=== PATIENT | female | born 1960 | race Caucasian/White ===

== ENCOUNTER 2018-08-02 15:25 | Emergency (ER) | payer MEDICAID, SELFPAY ==
[2018-08-02 15:31] VITALS: BP 109/61; PULSE 58; RESP 14; TEMP 36.8; O2SAT 96
--- NOTE | 2018-08-02 16:14 | NUR.NOTE ---
patient stated that she would like to leave after doing the eye chart without difficulty. 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 advised to seek care if need be again.Nursing Note:
== END 2018-08-02 16:07 ==
PROVIDERS: PCP Family Medicine
DX: Z53.21 Procedure and treatment not carried out due to patient leaving prior to being seen by health care provider (principal)

== ENCOUNTER 2018-12-31 15:42 | Outpatient (CLI) | payer MEDICAID, SELFPAY ==
[2018-12-31 16:31] LABS: Abs Immature Grans 0.02 k/cumm (0.0-0.09); Absolute Basophil Count 0.04 k/cumm (0.0-0.2); Absolute Eosinophil Count 0.26 k/cumm (0.0-0.7); Absolute Lymphocyte Count 1.69 k/cumm (1.2-3.4); Absolute Monocyte Count 0.44 k/cumm (0.11-0.7); Absolute Neutrophil Count 3.47 k/cumm (1.2-6.7); Basophils % 0.7; Eosinophils % 4.4; HCT 41.5 % (36.0-46.0); HGB 14.1 g/dL (12.0-15.5); Immature Grans % 0.3; Lymphocytes % 28.5; Mean Corpuscular Hemoglobin 31.3 pg (27.0-33.0); Mean Platelet Volume 10.3 fL (8.0-11.0); Monocytes % 7.4; Neutrophils % 58.7; Platelet Count 192 x1000/uL (130-400); RBC 4.51 m/cumm (4.00-5.20); RBC Distribution Width 12.9 % (11.7-14.6); White Blood Cell Count 5.92 k/cumm (4.4-10.8)
[2018-12-31 16:46] LABS: Bilirubin Negative (Negative); Blood Negative (Negative); Clarity Clear; Glucose Negative (Negative); Ketones Negative (Negative); Leukocyte Esterase Trace (Negative); Nitrite Negative (Negative); Urobilinogen 0.2 EU/dL (Up TO 0.2)
[2018-12-31 17:04] LABS: Iron 88 ug/dL (50-175); Total Iron Binding Capacity 289 ug/dL (250-450); Transferrin Sat 30 % (15-50)
[2018-12-31 17:06] LABS: Bacteria Rare HPF (Negative); C & S Indicated? No; Casts Negative LPF (Negative); Crystals Negative HPF (Negative); Epithelial Cells Rare HPF (Negative); Mucus Negative (Negative); Other Cells Negative (Negative); RBC Negative (0-2); WBC 0-2 HPF (0-5)
[2018-12-31 17:09] LABS: ALT 58 U/L (12-78); AST 31 U/L (15-37); Albumin 4.2 g/dL (3.4-5.0); Alkaline Phosphatase 118 U/L (46-116); Anion Gap 11.7 mmol/L (3-11); BUN 13 mg/dL (7-18); Bilirubin, Total 0.4 mg/dL (0.2-1.0); CO2 27.3 mmol/L (21.0-32.0); CREATININE 0.82 mg/dL (0.55-1.02); Calcium 9.1 mg/dL (8.5-10.1); Chloride 103 mmol/L (98-107); Ferritin 77 ng/mL (8-388); Glucose 96 mg/dL (70-100); Potassium 4.1 mmol/L (3.5-5.1); Sodium 142 mmol/L (136-145); TSH 6.69 uIU/mL (0.358-3.74); Total Protein 7.4 g/dL (6.4-8.2)
[2018-12-31 17:42] LABS: FREE T4 1.03 ng/dL (0.76-1.46)
[2019-01-01 17:31] LABS: T3,Free 3.4 pg/ml (2.8-5.3)
[2019-01-02 11:51] LABS: Thyroperoxidase Antibody <28 U/mL (<61)
[2019-01-02 13:20] LABS: Thyroglobulin Antibody 15 U/mL (<61)
[2019-01-06 18:04] LABS: Histamine Plasma 0.72 ng/mL (0-1.0)
== END 2018-12-31 16:02 ==
PROVIDERS: PCP Family Medicine; Visit Provider Naturopath
DX: E03.9 Hypothyroidism, unspecified (principal); D50.9 Iron deficiency anemia, unspecified; E01.8 Other iodine-deficiency related thyroid disorders and allied conditions; M79.7 Fibromyalgia; G44.209 Tension-type headache, unspecified, not intractable; R53.83 Other fatigue; J30.9 Allergic rhinitis, unspecified; Z00.00 Encounter for general adult medical examination without abnormal findings
CPT/HCPCS: 36415; 80053; 81003; 81015; 82728; 83088; 83540; 83550; 84439; 84443; 84481; 85025; 86376; 86800

== ENCOUNTER 2020-11-03 11:20 | Outpatient (REF) | payer MEDICAID, SELFPAY ==
--- OUTSIDE RECORDS SUMMARY | 2020-11-03 11:22 | XMS_ITS | Encounter Summary ---
:1960 External Reference #:[id number] Author Reason for Visit phone consult Assessment and Plan 1. Anxiety 2. Sensitivity chemical sensitivity (MCS), el ectro-hypersensitivity (EHS) Discussion Note 1. 34 minutes (10:38am- 11:12am) sp ent with patient in consultation. 50 % CCC with review of dx and tx options. f/u pr n. Patient educational handouts: No information available. Plan of Care Patient Instructions 1. F/U with PCP. 2. Sacred cubit sticks to place near y ou when using electronic devices. Reminders Provider Appointments None recorded. ? ? Lab None recorded. ? ? Referral None recorded. ? ? Procedures None recorded. ? ? Surgeries None recorded. ? ? Imaging None recorded. ? ? Medications No Medications Reported Notes: Liposomal glutathione 375 mg CoQ10 60mg qd Selenium Thyrocare Rosaline Active B complex 1 qd Qamar prn Magnesium glycinate Methylfolate 2.5mg/d Vitamin D 5,000 IU ADK Zinc 30mg Quercetin 250mg Vitamin C (NOW) Medications Administered None recorded. Vitals None recorded. Results Lab Results None recorded. Allergies Code Code System Name Reaction Severity Onset 4530 RxNorm Formaldehyde ? ? ? 969722 RxNorm House Dust ? ? ? 5818551 RxNorm Latex ? ? ? Penicillins ? ? ? Notes: chemicals EMF (hernandez hands, irregular HR, fatigue) Problems Name Status Onset Date Source ? 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 Anxiety Active 11/30/2018 ? Fibromyalgia Active 11/30/2018 ? Fatigue Active 11/30/2018 ? Procedures Date Name Performed by ? 04/20/2020 Cataract Surgery Complex Information not available Vaccine List None recorded. Social History Tobacco Smoking Status Never Smoker Diet SPECIFIC Number of children 5 Able to Care for Self Y Chewing tobacco none Most Recent Tobacco Use Screening 11/29/2018 Advance directive Y General stress level Medium Exercise level Occasional Notes: chores Live alone or with others? with others Notes: wit h 18yo son Alcohol intake None Education 4 Year College Sexually active? N Passive smoke exposure? N Hard of hearing or deaf in one or both N ears? Caffeine intake None Smoke alarm in home Y Seat belts used routinely Y Legally blind in one or both eyes? N Family History Relation Problem Onset Age of Age Notes Mother Diabetes mellitus (No N/A (No Notes) Information) Mother Osteoporosis (No N/A (No Notes) Information) Mother Heart disease (No N/A (No Notes) Information) Mother Hypertensive disorder (No N/A (No No sugey) Information) Mother Hypercholesterolemia (No N/A (No Not es) Information) Brother Diabetes mellitus (No N/A (No Notes) Information) Brother Alcohol abuse (No N/A (No Notes) Information) Sister Osteoporosis (No N/A (No Notes) Information) Sister Hypothyroidism (No N/A (No Notes) Information) Son Hypothyroidism (No N/A (No Notes) Information) Daughter Localized scleroderma (No N/A d/t va ccine Information) Father Spina bifida (No N/A (No Notes) Information) Functional Status Unknown. Past Encounters 09/30/2020 Anxiety; Sensitivity Lani Powell, [place]: [address] [place] [phone], Ph. History of Present Illness Note: 60 year old female seen for telephone consultation (no computer for telemed) for YESSI. Sees [facility] for PCP. Had recent bloodwork done there for screening. <div>
</div><div>CC#1: MCS </div><div>EMF sensitivity which she feels affects her heart. </div><div>Other symptoms: hand hernandez and it radiates up her arm. </div><div>Lives alone which she is not used to; grew up in a big family and had 5 kids but is thinking she may foster a child. </div><div>Doesn't use the computer much and it is wired. Doesn't have a cell phone; uses a land line. </div><div>Her sensitivity increased when she had carbon monoxide exposure from a boiler in her home 2 winter's ago. </div><div>Symptoms related to EMF are better in the summer. </div><div>After computer use she gets heart palpitations and her hands/arms ache. </div><div>Only 2 outlets in her house but uses an electrical heater whichaffects her heart. </div><div>Has a natural fiber bed without springs now. She is wondering about carbon paint?? </div> Review of Systems ? Comprehensive General Adult ROS Reported By: Patient Constitutional: Constitutional: no fever, no night sweats, no significant weight gain, no significant weight loss, no exercise intolerance Eyes: Eyes: no dry eyes, no vision change, no irritation; wears reading glasses ENMT: Ears: no ear pain, difficult y hearing. Nose: no frequent nosebleeds, no nose problems , no sinus problems; deviated septum d/t fracture 2010. Mo uth/Throat: no sore throat, no dry mouth, no mouth ulcers Cardiovascular: Cardiovascular: no chest jessica n, no arm pain on exertion, no shortness of breath when wal efraín, no shortness of breath when lying down, no known heart m urmur, palpitations Respiratory: Respiratory: no cough, no wh eezing, no shortness of breath, no coughing up blood, no sleep apnea Gastrointestinal: Gastrointestinal: no abdomin al pain, no vomiting, normal appetite, no diarrhea, not v omiting blood, no dyspepsia, no GERD, no constipation; BM: 1 -3x/day, well formed, easy to pass Genitourinary: Genitourinary: no incontinen ce, no difficulty urinating, no hematuria, no increased freq uency Musculoskeletal: Musculoskeletal: no muscle w eakness, no arthralgias/joint pain, no back pain, no swell ing in the extremities, muscle aches; Has been able to hike and stay more active. Is doing much better with fibromyalgi a. FMS jt pn: hips, knee, back, shoulder, neck Integumentary: Skin: no abnormal mole, no j aundice, no rashes, no laceration Neurologic: Neurologic: no loss of consc iousness, no weakness, no numbness, no seizures, no di zziness, no tremor, migraines Psychiatric: Psych: no depression, no sle ep disturbances, feeling safe in a relationship, no alcohol abu se, no hallucinations, no suicidal thoughts, anxiety Endocrine: Endocrine: no fatigue, (norm al) hot flashes Hematologic/Lymphatic: Hematologic/Lymphatic no swo llen glands, no bruising, no excessive bleeding Allergic/Immunologic: Allergy/Immunologic: no runn y nose, no sinus pressure, no itching, no hives, no freque nt sneezing Physical Exam ? Mental Status Exam Reported By: Patient Mental Status Exam: Speech: fluent, clear, francis l volume. Perception: no hallucinations. Cognition: a lert, oriented to situation, oriented to time, oriented to place, oriented to person, memory intact. Intelligence: average. Mood: euthymic. Affect: pleasant, congruent to thought content . Insight: intact. Judgment: intact. Thought Processes: persevera tion. Thought Content: unremarkable
--- OUTSIDE RECORDS SUMMARY | 2020-11-03 11:22 | XMS_ITS ---
:1960 Author Care Team Providers Name Role Phone BARBARA SEE GREEN Primary Care Provider [phone] SAY ZHENG MD Mold Worker [phone] Allergies Code Code System Name Reaction Severity Status Onset 710423 RxNorm Jesse Thyroid ? ? Active ? Histamine H2 ? ? Active ? Inhibitors Latex, Natural ? ? Active ? Rubber 15036 RxNorm Levothyroxine ? ? Active ? 7299 RxNorm Neomycin ? ? Active ? Penicillins ? ? Active ? 115041 RxNorm Synthroid ? ? Active ? Medications Name Status Start Date Stop Date ? ? Jesse Thyroid 15 mg tablet Completed ? 07/21 Keflex 500 mg capsule Completed ? 08/07/2019 Take 1 capsule 4 times a day by oral route for 7 days. liothyronine 5 mcg tablet Active ? Not av ailable neomycin 3.5 mg/g-polymyxin B 10,000 Completed ? 08/07/2019 unit/g-dexameth 0.1 % eye oint Vigamox 0.5 % eye drops Completed ? 08/07/20 Notes: Folate Herbal medicines Problems Name Status Onset Date Source ? Fibromyalgia Active 01/06/2019 ? Disorder of Thyroid Gland Active ? Histor y Adhesive Capsulitis of Shoulder Active ? History Closed Fracture of Carpal Bone Active ? H istory Gynecologic Examination Active ? History Screening Mammography Active ? History Hyperlipidemia Screening Active ? History Procedure by Method Unknown ? History Notes: Mastcell Cytosis Multiple Chemical Sensitivies Osteopenia Hypothyroidism EMF sensitivty Procedures Date Name Performed by ? 08/07/2019 MAMMO, Screening, Tomosynthesis, [facility] Radiology (Internal) Bilateral [address] [place] [address] (Work Place) 08/17/2019 , Breast [facility] Radiology (Internal) [address] [place] [address] (Work Place) Notes: none Results Lab Results Date Name Specimen Result Interpretation Description Value Range Status Address ? 12/03/2019 CBC W/ Auto BLD ? Wbc 5.1 5.0-10.0 Final [place] Diff 10*3/uL 10*3/uL [facility] L ab (Internal) : [address] ? ? BLD ? Rbc 4.56 4.10-5.30 Final [place] 10*6/uL 10*6/uL [facility] L ab (Internal) : [address] ? ? BLD ? Hgb 13.9 g/dL 12.0-16.0 Final Nort h g/dL [facility] L ab (Internal) : [address] ? ? BLD ? Hct 42.5 % 37.0-47.0 Final [facility] L ab (Internal) : [address] ? ? BLD ? Mcv 93.2 fL 80.0-96.0 Final [facility] Hospital L ab (Internal) : [address] t ? ? BLD ? Mch 30.5 pg 26.0-32.0 Final [facility] L ab (Internal) : [address] t ? ? BLD ? Mchc 32.7 g/dL 31.0-35.0 Final Nort h g/dL [facility] L ab (Internal) : [address] t ? ? BLD ? Rdw 13.0 % 11.5-14.5 Final [facility] L ab (Internal) : [address] t ? ? BLD ? Plt 223 130-450 Final [place] 10*3/uL 10*3/uL [facility] L ab (Internal) : [address] ? ? BLD ? Anc 2.67 ? Final [place] 10*3/uL [facility] L ab (Internal) : [address] t ? ? BLD ? Neutro 52.7 % 40.0-75.0 Final [facility] L ab (Internal) : [address] t ? ? BLD ? Lymph 32.3 % 20.0-50.0 Final [facility] L ab (Internal) : [address] ? ? BLD ? Hyde 7.9 % 2.0-10.0 Final [place] % [facility] L ab (Internal) : [address] t ? ? BLD ? Eos 5.9 % 1.0-6.0 % Final [facility] Hospital L ab (Internal) : [address] t ? ? BLD ? Baso 1.0 % 0.0-1.0 % Final [facility] Hospital L ab (Internal) : [address] t ? ? BLD ? Ig 0.2 % 0.0-0.9 % Final [facility] Hospital L ab (Internal) : [address] t 12/03/2019 CMP, Serum S ? g/r 89 mg/dL 74-106 Final [place] or Plasma mg/dL [facility] ([facility] : [address] t ? ? S High Bun 18 mg/dL 7-17 Final [place] mg/dL [facility] L ab (Internal) : [address] t ? ? S ? Crea 0.70 mg/dL 0.52-1.04 Final Nor th mg/dL [facility] L ab (Internal) : [address] t ? ? S ? Ca 9.3 mg/dL 8.4-10.2 Final [facility] mg/dL [facility] ([facility] : [address] t ? ? S ? Na 141 mmol/L 137-145 Final North mmol/L [facility] L ab (Internal) : [address] t ? ? S ? K 3.6 mmol/L 3.5-5.1 Final [place] mmol/L [facility] L ab (Internal) : [address] t ? ? S ? Cl 104 mmol/L 98-107 Final North mmol/L [facility] L ab (Internal) : [address] t ? ? S ? Tco2 26.0 22.0-30.0 Final North mmol/L mmol/L [facility] L [facility] (Internal) : [address] t ? ? S ? Tp 7.3 g/dL 6.3-8.2 Final [place] g/dL [facility] L ab (Internal) : [address] t ? ? S ? Alb 4.4 g/dL 3.5-5.0 Final [place] g/dL [facility] L [facility] (Internal) : [address] t ? ? S ? Tbil 0.4 mg/dL 0.2-1.3 Final [place] mg/dL [facility] L ab (Internal) : [address] t ? ? S ? Alp 91 U/L 50-136 Final [place] U/L [facility] Hospital L ab (Internal) : [address] t ? ? S ? Alt 25 U/L 9-52 U/L Final [place] (Sgpt) [facility] L ab (Internal) : [address] t ? ? S ? Ast 29 U/L 14-36 U/L Final [place] (Sgot) [facility] L [facility] (Internal) : [address] 12/03/2019 D-dimer, PLASMA High Dimq 0.96 mg/L 0.00-0.50 Final [place] Quant, mg/L [facility] Plasma Hospital L ab (Internal) : [address] 12/03/2019 Urinalysis, UR ? UA-color pale pale Final [place] Dipstick, yellow yellow [facility] Hospital L ab Micro (Internal) : [address] t ? ? UR ? UA-appear clear clear Final [facility] Hospital L ab (Internal) : [address] t ? ? UR ? UA-spec <=1.005 1.003-1.0 Final Nort h Grav 35 [facility] L ab (Internal) : [address] t ? ? UR ? UA-pH 5.5 [pH] 4.6-8.0 Final [place] [pH] [facility] L ab (Internal) : [address] t ? ? UR ABNORMAL UA-leuk trace negative Final Nort h Est [facility] Hospital L ab (Internal) : [address] ? ? UR ? UA-nitrit negative negative Final No rth e [facility] L ab (Internal) : [address] t ? ? UR ? UA-prot negative negative Final Nort h [facility] L ab (Internal) : [address] t ? ? UR ? UA-gluc negative negative Final Nort h [facility] Hospital L ab (Internal) : [address] t ? ? UR ? UA-ketone negative negative Final No rth [facility] L ab (Internal) : [address] t ? ? UR ? UA-urobil normal normal Final [facility] L ab (Internal) : [address] t ? ? UR ? UA-bili negative negative Final [facility] L ab (Internal) : [address] t ? ? UR ? UA-blood negative negative Final [facility] L ab (Internal) : [address] 12/03/2019 Troponin I, S ? Trop <0.06 0.00-0.06 Final [place] Serum or NG/mL NG/mL [facility] L ab (Internal) : [address] 12/03/2019 Urinalysis, UR ? UA-WBC 0-3 [hpf] 0-3 [hpf] F inal [place] Microscopic Count [facility] L ab (Internal) : [address] t ? ? UR ? UA-RBC 0-2 [hpf] 0-2 [hpf] Final [facility] L ab (Internal) : [address] t ? ? UR ? UA-bacter rare [hpf] none seen Final [place] ia [hpf] [facility] L ab (Internal) : [address] ? ? UR ? UA-epithe rare [hpf] none seen Final [place] lial [hpf] [facility] L ab (Internal) : [address] t ? ? UR ? UA-mucus none seen none seen Final N orth [hpf] [hpf] [facility] L ab (Internal) : [address] t 12/03/2019 TSH, Serum S ? Tsh 3.41 0.47-4.68 Final [place] or Plasma u[IU]/mL u[IU]/mL [facility] L ab (Internal) : [address] t 09/25/2019 Maddy-bar S - Ebv Vca negative negative Fi nal North r Virus IgM Ab, S Countr y (Ebv) IgG + Hospi grace Lab IgM Panel, (Inter nal): Serum [address] t ? ? S - Ebv Vca positive negative Final Nort h IgG Ab, S [facility] L ab (Internal) : [address] ? ? S - Ebna Ab, positive negative Final Nor th [facility] L ab (Internal) : [address] ? ? S - Interpret results ? Final North ation suggest [facility] L ab infection. (Inter nal): [address] 09/25/2019 Vitamin D, S - 25-Hydrox <4.0 NG/mL ? F inal North 25-Hydroxy, y D2 Count ry Total, Hospital L ab Serum (Internal) : [address] ? ? S - 25-Hydrox 54 NG/mL ? Final Nort h y D3 [facility] L ab (Internal) : [address] ? ? S - 25-Hydrox 54 NG/mL ? Final Nort h y D Total [facility] L ab (Internal) : [address] 09/25/2019 TSH, Serum S - Tsh 3.65 0.47-4.68 Final [place] or Plasma u[IU]/mL u[IU]/mL [facility] L ab (Internal) : [address] 09/25/2019 T4, Free, S - Ft4 1.04 NG/dL 0.78-2.19 [facility] Serum NG/dL [facility] L ab (Internal) : [address] 06/17/2019 Insulin, S - Insulin 3.2 uu/mL <29 uu/mL [facility] L ab (Internal) : [address] 06/17/2019 MIRNA S - MIRNA negative negat Final Nort h ([facility]) (Inte rnal): Screen, [address] 01/06/2019 CBC W/ Auto BLD - Wbc 5.3 5.0-10.0 Final [place] Diff 10*3/uL 10*3/uL [facility] L ab (Internal) : [address] ? ? BLD - Rbc 4.42 4.10-5.30 Final [place] 10*6/uL 10*6/uL [facility] L [facility] (Internal) : [address] ? ? BLD - Hgb 13.6 g/dL 12.0-16.0 Final Nort h g/dL [facility] Hospital L ab (Internal) : [address] ? ? BLD - Hct 40.8 % 37.0-47.0 Final [facility] (Internal) : [address] ? ? BLD - Mcv 92.3 fL 80.0-96.0 Final [facility] Hospital L ab (Internal) : [address] ? ? BLD - Mch 30.8 pg 26.0-32.0 Final [place] pg [facility] Hospital L ab (Internal) : [address] ? ? BLD - Mchc 33.3 g/dL 31.0-35.0 Final Nort h g/dL [facility] Hospital L ab (Internal) : [address] ? ? BLD - Rdw 12.5 % 11.5-14.5 Final [facility] (Internal) : [address] ? ? BLD - Plt 186 130-450 Final [place] 10*3/uL 10*3/uL [facility] Hospital L ab (Internal) : [address] ? ? BLD - Anc 3.24 ? Final [place] 10*3/uL [facility] Hospital L ab (Internal) : [address] ? ? BLD - Neutro 60.8 % 40.0-75.0 Final [facility] (Internal) : [address] ? ? BLD - Lymph 26.6 % 20.0-50.0 Final [facility] (Internal) : [address] ? ? BLD - Hyde 7.7 % 2.0-10.0 Final [facility] (Internal) : [address] ? ? BLD - Eos 3.9 % 1.0-6.0 % Final [facility] Hospital L ab (Internal) : [address] ? ? BLD - Baso 0.8 % 0.0-1.0 % Final [facility] Hospital L ab (Internal) : [address], Martin[place]enn t ? ? BLD - Ig 0.2 % 0.0-0.9 % Final [facility] Hospital L ab (Internal) : [address] 01/06/2019 CMP, Serum S - g/r 84 mg/dL 74-106 Final North or Plasma mg/dL [facility] L [facility] (Internal) : [address] t ? ? S - Bun 11 mg/dL 7-17 Final [facility] mg/dL [facility] L [facility] (Internal) : [address] t ? ? S - Crea 0.70 mg/dL 0.52-1.04 Final Nor th mg/dL [facility] L [facility] (Internal) : [address] ? ? S - Ca 9.0 mg/dL 8.4-10.2 Final [place] mg/dL [facility] L ab (Internal) : [address] t ? ? S - Na 141 mmol/L 137-145 Final North mmol/L [facility] L ab (Internal) : [address] t ? ? S - K 3.7 mmol/L 3.5-5.1 Final [facility] mmol/L [facility] (Internal) : [address] t ? ? S - Cl 105 mmol/L 98-107 Final [place] mmol/L [facility] Hospital L ab (Internal) : [address] t ? ? S - Tco2 26.0 22.0-30.0 Final North mmol/L mmol/L [facility] L [facility] (Internal) : [address] t ? ? S - Tp 7.1 g/dL 6.3-8.2 Final [facility] g/dL [facility] L [facility] (Internal) : [address] ? ? S - Alb 4.0 g/dL 3.5-5.0 Final [facility] g/dL [facility] L [facility] (Internal) : [address] t ? ? S - Tbil 0.6 mg/dL 0.2-1.3 Final [facility] mg/dL [facility] L [facility] (Internal) : [address] t ? ? S - Alp 92 U/L 50-136 Final [facility] U/L [facility] L [facility] (Internal) : [address] jun ? ? S - Alt 35 U/L 9-52 U/L Final [place] (Sgpt) [facility] Hospital L ab (Internal) : [address] jun ? ? S - Ast 28 U/L 14-36 U/L Final [place] (Sgot) [facility] Hospital L ab (Internal) : [address] 01/06/2019 CRP, High S - Rcrp <0.10 0.10-0.30 Final [place] Sensitivity mg/dL mg/dL Count ry , Serum or Hospit al Lab Plasma (Internal) : [address] [facility] 01/06/2019 Go-roch MISC - [id number] see below ? Final No rth Refrigerate 01/08/2019 C ountry 11:56 AM Hospital Lab (Internal) : [address] 01/06/2019 Go-roch MISC - [id number] see below ? Final [place] r[facility] Refrigerate 01/08/2019 C ountry 11:49 AM Hospital Lab (Internal) : [address] 01/06/2019 Go-roch MISC - [id number] see below ? Final [place] r[place] Refrigerate 01/08/2019 C ountry 11:48 AM Hospital Lab (Internal) : [address] 01/06/2019 Go-roch MISC - [id number] see below ? Final [place] r[place] Refrigerate 01/08/2019 C [place]untry 11:48 AM Hospital Lab (Internal) : [address] t 01/06/2019 Go-roch MISC - [id number] see below ? Final [place] r[place] Refrigerate 01/08/2019 C [place]unt[place] 11:50 AM Hospital Lab (Internal) : [address] 01/06/2019 Go-roch MISC - [id number] see below ? Final [place] r[place] Refrigerate 01/09/2019 C [place] 03:56 pm Hospital Lab (Internal) : [address] 01/06/2019 Go-roch MISC - [id number] see below ? Final [place] r[place] Refrigerate 01/08/2019 C [place]unt[place] 01:40 pm Hospital Lab (Internal) : [address] t 01/06/2019 Grass S - Grass <0.35 kU/L ? Final No rth Allergen Panel # 2 Count ry Panel, Hospital L ab Serum (Internal) : [address] 01/06/2019 Soybean S - Soybean, <0.35 kU/L ? Final [place] Ige, Serum IgE Countr Hospital L ab (Internal) : [address] 01/06/2019 Mold S - Mold <0.35 kU/L ? Final No rth Allergen Panel [facility] Mix II IgE Hospit al Lab Ab, Serum (Pharmacy Informatics Manager al): [address] 01/06/2019 Egg Yolk S - Egg Yolk, <0.35 kU/L ? Fin al [place] Ige, Serum IgE Countr Hospital L ab (Internal) : [address] 01/06/2019 Egg White S - Egg <0.35 kU/L ? Final [place] Ige, Serum White, IgE [facility] Hospital L ab (Internal) : [address] 01/06/2019 Doland Ige, S - Doland-food <0.35 kU/L ? Fi nal [place] Serum , IgE [facility] Hospital L ab (Internal) : [address] 01/06/2019 Aspergillus S - Aspergill 61.7 mg/L <=102 F inal [place] Fumigatus us mg/L Country IgG Ab, QN, Fumigatus, H ospital Lab Serum IgG Ab, S (Pharmacy Informatics Manager al): [address] 01/06/2019 MIRNA S ABNORMAL MIRNA positive negat Final No rth (Antinuclea Interpreta C [facility] Hospital L ab Antibodies) (Inte rnal): Screen, [address] ? ? S - Antibody 1:160 ? Final [place] Titer speckled [facility] Pattern Hospital Lab (Internal) : [address] 01/06/2019 Send Out, MISC - S/O ? ? Final th Misc. [facility] L ab (Internal) : [address] ? ? MISC - Status sent to ? Final [place] reference [facility] L ab (Internal) : [address] 11/18/2018 Tryptase, S - Tryptase, 4.3 NG/mL <11.5 Fin al [place] Serum S NG/mL [facility] Hospital L ab (Internal) : [address] t 11/18/2018 CBC W/ Auto BLD - Wbc 5.4 5.0-10.0 Final [place] Diff 10*3/uL 10*3/uL [facility] Hospital L ab (Internal) : [address], [place] t ? ? BLD - Rbc 4.72 4.10-5.30 Final [place] 10*6/uL 10*6/uL [facility] Hospital L ab (Internal) : [address] t ? ? BLD - Hgb 14.5 g/dL 12.0-16.0 Final Nort h g/dL [facility] Hospital L ab (Internal) : [address] t ? ? BLD - Hct 44.0 % 37.0-47.0 Final [facility] L ab (Internal) : [address] t ? ? BLD - Mcv 93.2 fL 80.0-96.0 Final [facility] L ab (Internal) : [address] t ? ? BLD - Mch 30.7 pg 26.0-32.0 Final [facility] L ab (Internal) : [address] t ? ? BLD - Mchc 33.0 g/dL 31.0-35.0 Final Nort h g/dL [facility] L ab (Internal) : [address] t ? ? BLD - Rdw 12.7 % 11.5-14.5 Final [facility] L ab (Internal) : [address] t ? ? BLD - Plt 237 130-450 Final [place] 10*3/uL 10*3/uL [facility] L ab (Internal) : [address] t ? ? BLD - Anc 2.82 ? Final [place] 10*3/uL [facility] L ab (Internal) : [address] t ? ? BLD - Neutro 52.8 % 40.0-75.0 Final [facility] L ab (Internal) : [address] ? ? BLD - Lymph 32.5 % 20.0-50.0 Final [facility] L ab (Internal) : [address] ? ? BLD - Hyde 8.4 % 2.0-10.0 Final [facility] L ab (Internal) : [address] ? ? BLD - Eos 5.0 % 1.0-6.0 % Final [facility] Hospital L ab (Internal) : [address] ? ? BLD High Baso 1.1 % 0.0-1.0 % Final [facility] L ab (Internal) : [address] ? ? BLD - Ig 0.2 % 0.0-0.9 % Final [facility] L ab (Internal) : [address] 11/18/2018 Send Out, MISC - S/O ? ? Final [facility] L ab (Internal) : [address] ? ? MISC - Status sent to ? Final [facility] L ab (Internal) : [address] [place] 11/18/2018 -[facility] - [id number] see below ? Final No rth Refrigerate 11/25/2018 C ountry 09:06 AM Hospital Lab (Internal) : [address] 11/18/2018 -[facility] - [id number] see below ? Final No rth Refrigerate 11/24/2018 C ountry 08:40 AM Hospital Lab (Internal) : [address] [place] 09/21/2018 CBC W/ Auto BLD - Wbc 6.8 5.0-10.0 Final [place] Diff 10*3/uL 10*3/uL [facility] Hospital L ab (Internal) : [address] [place] ? ? BLD Low Rbc 3.97 4.10-5.30 Final [place] 10*6/uL 10*6/uL [facility] Hospital L ab (Internal) : [address] [place] ? ? BLD - Hgb 12.2 g/dL 12.0-16.0 Final [facility] h g/dL [facility] Hospital L ab (Internal) : [address] [place] ? ? BLD - Hct 37.0 % 37.0-47.0 Final [facility] L ab (Internal) : [address] [place] ? ? BLD - Mcv 93.2 fL 80.0-96.0 Final [place] fL [facility] Hospital L ab (Internal) : [address] ? ? BLD - Mch 30.7 pg 26.0-32.0 Final [place] pg [facility] Hospital L ab (Internal) : [address] ? ? BLD - Mchc 33.0 g/dL 31.0-35.0 Final Nort [facility] g/dL [facility] (Internal[facility] : [address] t ? ? BLD - Rdw 12.4 % 11.5-14.5 Final [facility] L [facility] (Internal) : [address] t ? ? BLD - Plt 185 130-450 Final North 10*3/uL 10*3/uL [facility] L [facility] (Internal) : [address] ? ? BLD - Anc 4.00 ? Final [place] 10*3/uL [facility] Hospital L ab (Internal) : [address] ? ? BLD - Neutro 58.8 % 40.0-75.0 Final [facility] L [facility] (Internal) : [address] t ? ? BLD - Lymph 26.6 % 20.0-50.0 Final [facility] L [facility] (Internal) : [address] t ? ? BLD - Hyde 9.5 % 2.0-10.0 Final [facility] L [facility] (Internal) : [address] t ? ? BLD - Eos 3.7 % 1.0-6.0 % Final [facility] Hospital L ab (Internal) : [address] t ? ? BLD - Baso 0.7 % 0.0-1.0 % Final [facility] Hospital L ab (Internal) : [address] ? ? BLD - Ig 0.7 % 0.0-0.9 % Final [facility] Hospital L ab (Internal) : [address] 09/21/2018 CMP, Serum S - g/r 99 mg/dL 74-106 Final [place] or Plasma mg/dL [facility] L [facility] (Internal) : [address] t ? ? S - Bun 14 mg/dL 7-17 Final [facility] mg/dL [facility] L [facility] (Internal) : [address] ? ? S - Crea 0.70 mg/dL 0.52-1.04 Final Nor th mg/dL [facility] L ab (Internal) : [address] t ? ? S - Ca 8.8 mg/dL 8.4-10.2 Final [facility] mg/dL [facility] L [facility] (Internal) : [address] t ? ? S - Na 142 mmol/L 137-145 Final [facility] mmol/L [facility] L [facility] (Internal) : [address] t ? ? S - K 3.5 mmol/L 3.5-5.1 Final [facility] mmol/L [facility] L [facility] (Internal) : [address] t ? ? S - Cl 107 mmol/L 98-107 Final [facility] mmol/L [facility] L [facility] (Internal) : [address] t ? ? S - Tco2 25.0 22.0-30.0 Final [place] mmol/L mmol/L [facility] L ab (Internal) : [address] ? ? S Low Tp 6.2 g/dL 6.3-8.2 Final [facility] g/dL [facility] L [facility] (Internal) : [address] t ? ? S - Alb 3.6 g/dL 3.5-5.0 Final [facility] g/dL [facility] L [facility] (Internal) : [address] t ? ? S - Tbil 0.2 mg/dL 0.2-1.3 Final [facility] mg/dL [facility] L [facility] (Internal) : [address] t ? ? S - Alp 71 U/L 50-136 Final [facility] U/L [facility] L [facility] (Internal) : [address] t ? ? S - Alt 18 U/L 9-52 U/L Final [place] (Sgpt) [facility] Hospital L ab (Internal) : [address] ? ? S - Ast 25 U/L 14-36 U/L Final [place] (Sgot) [facility] Hospital L ab (Internal) : [address] 09/21/2018 Troponin I, S - Trop <0.06 0.00-0.06 Final [place] Serum or NG/mL NG/mL [facility] L ab (Internal) : [address] [facility] 06/06/2018 T3, Free, S Low T3, Free 2.7 pg/mL 2.8-5.3 Fin al [place] Serum or pg/mL [facility] L ab (Internal) : [address] [facility] 06/06/2018 TSH, Serum S - Tsh 4.54 0.47-4.68 Final [place] or Plasma u[IU]/mL u[IU]/mL [facility] L ab (Internal) : [address] [facility] 06/06/2018 T4, Total, S - T4 5.5 ug/dL 5.5-11.0 Judith l [place] Serum ug/dL [facility] L ab (Internal) : [address] [facility] 03/25/2018 T3, Free, S - T3, Free 3.0 pg/mL 2.8-5.3 Fin al [place] Serum or pg/mL [facility] L ab (Internal) : [address] [facility] 03/25/2018 MIRNA S - MIRNA negative negat Final Nort h (Antinuclea Interpreta [facility] L ab Antibodies) (Inte rnal): Screen, [address] [facility] 03/25/2018 TSH, Serum S High Tsh 4.80 0.47-4.68 Final [place] or Plasma u[IU]/mL u[IU]/mL [facility] L ab (Internal) : [address] [facility] 03/25/2018 T4, Total, S Low T4 5.4 ug/dL 5.5-11.0 Judith [facility] Serum ug/dL [facility] L ab (Internal) : [address] [facility] 04/18/2017 Venipunctur BLD ? Venpn* ? ? Final [place] e [facility] L ab (Internal) : [address] [facility] 04/18/2017 T3, Free, S ? T3, Free 3.66 pg/mL 2.8-5.3 Fi nal [place] Serum or pg/mL [facility] L ab (Internal) : [address] [facility] 04/18/2017 TSH, Serum S ? Tsh 4.16 0.47-4.68 Final [place] or Plasma u[IU]/mL u[IU]/mL [facility] L ab (Internal) : [address] [facility] 04/18/2017 T4, Free, S ? Ft4 0.89 NG/dL 0.78-2.19 Fin al [place] Serum NG/dL [facility] L ab (Internal) : [address] [facility] 02/22/2017 Venipunctur BLD ? Venpn* ? ? Final [place] e [facility] L [facility] (Internal) : [address] [facility] 02/22/2017 T4, Total, S ? T4 6.1 ug/dL 5.5-11.0 Judith l [place] Serum ug/dL [facility] L ab (Internal) : [address] [facility] 02/22/2017 T3, Free, S ? T3, Free 2.9 pg/mL 2.3-4.2 Fin [facility] Serum or pg/mL [facility] L ab (Internal) : [address] [facility] 02/22/2017 ESR BLD ? Esr 9 mm/h 0-30 mm/h Final Nor th (Erythrocyt Count e Hospital L ab Sedimentati (Inte rnal): on Rate), [address] [facility] 02/22/2017 CRP, High S ? Rcrp <0.10 0.10-0.30 Final [place] Sensitivity mg/dL mg/dL Count ry , Serum or Hospit al Lab Plasma (Internal) : [address] [facility] 02/22/2017 BMP, Serum S ? g/r 90 mg/dL 74-106 Final [place] or Plasma mg/dL [facility] L ab (Internal) : [address] [facility] t ? ? S ? Bun 8 mg/dL 7-17 Final [place] mg/dL [facility] L ab (Internal) : [address], [facility] t ? ? S ? Crea 0.70 mg/dL 0.52-1.04 Final Nor th mg/dL [facility] L ab (Internal) : [address] [facility] t ? ? S ? Ca 9.1 mg/dL 8.4-10.2 Final [place] mg/dL [facility] L ab (Internal) : [address] t ? ? S ? Na 143 mmol/L 137-145 Final [place] mmol/L [facility] L [facility] (Internal) : [address] t ? ? S ? K 4.1 mmol/L 3.5-5.1 Final [place] mmol/L [facility] L [facility] (Internal) : [address] t ? ? S ? Cl 104 mmol/L 98-107 Final [place] mmol/L [facility] L ab (Internal) : [address] t ? ? S ? Tco2 28.0 22.0-30.0 Final [place] mmol/L mmol/L [facility] (Internal) : [address] t 02/22/2017 CBC W/ Auto BLD Low Wbc 4.6 5.0-10.0 Final [place] Diff 10*3/uL 10*3/uL [facility] L [facility] (Internal) : [address] t ? ? BLD ? Rbc 4.47 4.10-5.30 Final [place] 10*6/uL 10*6/uL [facility] L [facility] (Internal) : [address] t ? ? BLD ? Hgb 13.7 g/dL 12.0-16.0 Final Nort h g/dL [facility] L ab (Internal) : [address] ? ? BLD ? Hct 40.9 % 37.0-47.0 Final [facility] L [facility] (Internal) : [address] ? ? BLD ? Mcv 91.5 fL 80.0-96.0 Final [facility] L ab (Internal) : [address] t ? ? BLD ? Mch 30.6 pg 26.0-32.0 Final [place] pg [facility] L [facility] (Internal) : [address] t ? ? BLD ? Mchc 33.5 g/dL 31.0-35.0 Final Nort h g/dL [facility] L [facility] (Internal) : [address] ? ? BLD ? Rdw 12.9 % 11.5-14.5 Final [facility] L [facility] (Internal) : [address] t ? ? BLD ? Plt 207 130-450 Final [place] 10*3/uL 10*3/uL [facility] L [facility] (Internal) : [address] ? ? BLD ? Anc 2.57 ? Final [place] 10*3/uL [facility] L [facility] (Internal) : [address] ? ? BLD ? Neutro 56.4 % 40.0-75.0 Final [facility] L [facility] (Internal) : [address] Saige t ? ? BLD ? Lymph 30.8 % 20.0-50.0 Final [facility] L [facility] (Internal) : [address] [place] t ? ? BLD ? Hyde 7.5 % 2.0-10.0 Final [facility] L ab (Internal) : [address] ? ? BLD ? Eos 4.2 % 1.0-6.0 % Final [facility] L ab (Internal) : [address], [place] t ? ? BLD ? Baso 0.9 % 0.0-1.0 % Final [facility] L ab (Internal) : [address] ? ? BLD ? Ig 0.2 % 0.0-0.9 % Final [facility] L ab (Internal) : [address] [place] t 02/22/2017 TSH, Serum S ? Tsh 4.22 0.47-4.68 Final [place] or Plasma u[IU]/mL u[IU]/mL [facility] L ab (Internal) : [address] [place] t 12/28/2016 Venipunctur BLD ? Venpn* ? ? Final [facility] Hospital L ab (Internal) : [address], [place] t 12/28/2016 T3, Free, S ? T3, Free 2.6 pg/mL 2.3-4.2 Fin al [place] Serum or pg/mL [facility] L ab (Internal) : [address], [place] t 12/28/2016 Mumps Igg S ? Mumps Ab, positive ? Judith Zuniga Ab, Serum IgG, S [facility] L ab (Internal) : [address] t ? ? S ? Mumps IgG 2.0 ? Final [place] [facility] (Internal[facility] : [address] [facility] 12/28/2016 Measles Igg S ? Measles positive ? Judith willie [place] Ab, Serum IgG [facility] (Internal[facility] : [address] [facility] 12/28/2016 Hepatitis B S ? Hep B negative ? Final [place] Surface Ab, Surface Coun try [facility] Lab , Serum (Internal ): [address] ? ? S ? Hepatitis <5.0 ? Final [place] BS Ab, mIU/mL [facility] ve (Internal) : [address] [facility] 12/28/2016 HBsAg S ? Hep B negative ? Final Nort h (Hepatitis Surface Count ry B Surface Antigen Hospit al Lab Ag), Serum (Inter nal): [address] [place] 12/28/2016 Vitamin D, S ? 25-Hydrox <4.0 NG/mL ? F inal [place] 25-Hydroxy, y D2 Count ry Total, Hospital L ab Serum (Internal) : [address] ? ? S ? 25-Hydrox 44 NG/mL ? Final Nort h y D3 [facility] (Internal) : [address], [place] t ? ? S ? 25-Hydrox 44 NG/mL ? Final Nort h y D Total [facility] L [facility] (Internal) : [address] [place] 12/28/2016 Cortisol, S ? Cortisol 5 ug/dL ? Final [place] Serum or [facility] Hospital L ab (Internal) : [address] [facility] 12/28/2016 T4, Free, S ? Ft4 0.84 NG/dL 0.78-2.19 Fin [facility] Serum NG/dL [facility] L ab (Internal) : [address] [facility] 12/28/2016 Rubella Ab, BLD ? Rbla positive positive Judith l [place] Serum [facility] L [facility] (Internal) : [address] [facility] 12/28/2016 Zinc, Serum S ? Zinc, S 0.85 0.66-1.10 Fin [facility] or Plasma mcg/mL mcg/mL [facility] L ab (Internal) : [address] [facility] 12/28/2016 Copper, S ? Copper, S 1.07 0.75-1.45 Final [place] Serum or mcg/mL mcg/mL [facility] Hospital L ab (Internal) : [address] t 12/28/2016 CBC W/ Auto BLD Low Wbc 4.5 5.0-10.0 Final [place] Diff 10*3/uL 10*3/uL [facility] L ab (Internal) : [address] t ? ? BLD ? Rbc 4.53 4.10-5.30 Final [place] 10*6/uL 10*6/uL [facility] L ab (Internal) : [address] t ? ? BLD ? Hgb 14.2 g/dL 12.0-16.0 Final Nort h g/dL [facility] L [facility] (Internal) : [address] t ? ? BLD ? Hct 42.0 % 37.0-47.0 Final [facility] L ab (Internal) : [address] t ? ? BLD ? Mcv 92.7 fL 80.0-96.0 Final [facility] L ab (Internal) : [address] t ? ? BLD ? Mch 31.3 pg 26.0-32.0 Final [facility] L ab (Internal) : [address] t ? ? BLD ? Mchc 33.8 g/dL 31.0-35.0 Final Nort h g/dL [facility] L ab (Internal) : [address] t ? ? BLD ? Rdw 12.6 % 11.5-14.5 Final [facility] L ab (Internal) : [address] t ? ? BLD ? Plt 200 130-450 Final [place] 10*3/uL 10*3/uL [facility] L ab (Internal) : [address] t ? ? BLD ? Anc 2.60 ? Final [place] 10*3/uL [facility] L ab (Internal) : [address] t ? ? BLD ? Neutro 57.8 % 40.0-75.0 Final [facility] L ab (Internal) : [address] t ? ? BLD ? Lymph 29.6 % 20.0-50.0 Final [facility] L [facility] (Internal) : [address] t ? ? BLD ? Hyde 6.2 % 2.0-10.0 Final [place] % [facility] L ab (Internal) : [address] t ? ? BLD ? Eos 5.1 % 1.0-6.0 % Final [facility] Hospital L ab (Internal) : [address] t ? ? BLD High Baso 1.3 % 0.0-1.0 % Final [facility] L ab (Internal) : [address] t ? ? BLD ? Ig 0.0 % 0.0-0.9 % Final [facility] L ab (Internal) : [address] 12/28/2016 TSH, Serum S High Tsh 5.13 0.47-4.68 Final [place] or Plasma u[IU]/mL u[IU]/mL [facility] Hospital L ab (Internal) : [address] 12/28/2016 CMP, Serum S High g/r 107 mg/dL 74-106 Final [place] or Plasma mg/dL [facility] L ab (Internal) : [address] t ? ? S ? Bun 12 mg/dL 7-17 Final [place] mg/dL [facility] L ab (Internal) : [address] t ? ? S ? Crea 0.80 mg/dL 0.52-1.04 Final Nor th mg/dL [facility] L ab (Internal) : [address] t ? ? S ? Ca 8.8 mg/dL 8.4-10.2 Final [place] mg/dL [facility] L ab (Internal) : [address] t ? ? S ? Na 143 mmol/L 137-145 Final [place] mmol/L [facility] L ab (Internal) : [address] t ? ? S ? K 3.8 mmol/L 3.5-5.1 Final [place] mmol/L [facility] L ab (Internal) : [address] t ? ? S ? Cl 104 mmol/L 98-107 Final [place] mmol/L [facility] L [facility] (Internal) : [address] t ? ? S ? Tco2 28.0 22.0-30.0 Final [place] mmol/L mmol/L [facility] L ab (Internal) : [address] ? ? S ? Tp 7.3 g/dL 6.3-8.2 Final [place] g/dL [facility] L ab (Internal) : [address] ? ? S ? Alb 4.3 g/dL 3.5-5.0 Final [place] g/dL [facility] L ab (Internal) : [address] [place] [address] ? ? S ? Tbil 0.5 mg/dL 0.2-1.3 Final [place] mg/dL [facility] : [address] [place] ? ? S ? Alp 80 U/L 50-136 Final [place] U/L [facility] L [facility] (Internal) : [address] t ? ? S ? Alt 32 U/L 9-52 U/L Final [place] (Sgpt) [facility] L [facility] (Internal) : [address] t ? ? S ? Ast 22 U/L 14-36 U/L Final [place] (Sgot) [facility] L ab (Internal) : [address] t Past Encounters 09/24/2019 Say Zheng MD: [address] [place] [address], Ph. 08/07/2019 Screening Mammography; Routine Gynecolog ic Examination Done Chip Navarro MD: [address] [place] [address], Ph. Social History Tobacco Smoking Status Never Smoker Vaccine List None recorded. Plan of Care Reminders Provider Appointments None ? ? recorded. Lab None ? ? recorded. Referral None ? ? recorded. Procedures None ? ? recorded. Surgeries None ? ? recorded. Imaging None ? ? recorded. Vitals 08/07/2019 02:50PM HME 20 Height Weight BMI Blood Pressure 176.53 cm 78.02 kg 25 kg/m2 128/80 mm[Hg] 02/14/2017 Height Weight Blood Pressure 175.9 cm 81.15 kg 88/64 mm[Hg] 02/01/2016 Height Weight Blood Pressure 177.17 cm 83.19 kg 104/70 mm[Hg] 01/13/2015 Height Weight Blood Pressure 176.53 cm 79.33 kg 110/60 mm[Hg] 12/08/2014 Height Weight Blood Pressure 176.53 cm 79.97 kg 108/60 mm[Hg] 10/29/2013 Height Weight Blood Pressure 176.53 cm 79.97 kg 110/62 mm[Hg] 08/07/2011 Height Weight Blood Pressure 176.53 cm 85.73 kg 108/62 mm[Hg] 07/27/2010 Weight Blood Pressure 77.56 kg 120/62 mm[Hg] 01/13/2007 Height 176.53 cm 01/13/2007 Weight 81.65 kg 08/13/2006 Height Weight Blood Pressure 177.8 cm 80.06 kg 104/66 mm[Hg]
--- OUTSIDE RECORDS SUMMARY | 2020-11-03 11:22 | XMS_ITS ---
:1960 External Reference #:[id number] Author Care Team Providers Name Role Phone Georgiana Davis Primary Care Provider Unavailable Allergies Code Code System Name Reaction Severity Status Onset 4530 RxNorm Formaldehyde ? ? Active ? 359625 RxNorm House Dust ? ? Active ? 0975222 RxNorm Latex ? ? Active ? Penicillins ? ? Active ? Notes: chemicals EMF (hernandez hands, irregular HR, fatigue) Medications Name Status Start Date Stop Date ? ? [place] Thyroid 15 mg tablet Completed ? 11/21 liothyronine 5 mcg tablet Completed ? 2018 neomycin 3.5 mg/g-polymyxin B 10,000 Completed ? 11/30/2018 unit/g-dexameth 0.1 % eye oint Vigamox 0.5 % eye drops Completed ? 11/30/19 19 Notes: Liposomal glutathione 375 mg CoQ10 60mg qd Selenium Thyrocare Rosaline Active B complex 1 qd [place] prn Magnesium glycinate Methylfolate 2.5mg/d Vitamin D 5,000 IU ADK Zinc 30mg Quercetin 250mg Vitamin C (NOW) Problems Name Status Onset Date Source ? 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 Anxiety Active 11/30/2018 ? Fibromyalgia Active 11/30/2018 ? Fatigue Active 11/30/2018 ? Procedures Date Name Performed by ? 04/20/2020 Cataract Surgery Complex Information not available Results Lab Results None recorded. Past Encounters 09/30/2020 Anxiety; Sensitivity Lani Powell, ND: [address] [place] [phone], Ph. 07/26/2020 Hypothyroidism; Fibromyalgia; Anxiety; S ensitivity Georgiana Ryan, ND: [address] [place] [phone], Ph. Social History Tobacco Smoking Status Never Smoker Vaccine List None recorded. Plan of Care Patient Instructions 1. F/U with PCP. 2. Sacred cubit sticks to place near y ou when using electronic devices. Focus on grounding, and revisit way s of grounding within the home Reminders Provider Appointments None recorded. ? ? Lab None recorded. ? ? Referral None recorded. ? ? Procedures None recorded. ? ? Surgeries None recorded. ? ? Imaging None recorded. ? ? Vitals 02/10/2019 02:00PM YESSI Height 5 ft 9 in 02/10/2019 01:00PM NUTRITIONAL COUNSELING Height Weight BMI 5 ft 9 in 181 lbs 3.2 oz 26.8 kg/m2 01/20/2019 02:15PM YESSI Height 5 ft 9 in 12/30/2018 04:00PM YESSI Height 5 ft 9 in 11/29/2018 03:00PM FOC Height Weight BMI Blood Pressure 5 ft 9 in 185 lbs 27.3 kg/m2 124/80 mm[Hg]
[2020-11-04 21:38] LABS: COVID-19 RT-PCR UVMMC Result Negative (Negative)
== END 2020-11-03 11:40 ==
LOC: NCHCN 11:20
PROVIDERS: PCP Family Medicine; Visit Provider Physician Assistant
DX: Z20.822 Contact with and (suspected) exposure to COVID-19 (principal)
CPT/HCPCS: U0003

== ENCOUNTER 2020-11-14 15:43 | Outpatient (REF) | payer MEDICAID, SELFPAY ==
[2020-11-16 11:17] LABS: COVID-19 RT-PCR UVMMC Result Negative (Negative)
== END 2020-11-14 16:03 ==
LOC: NCHCN 15:43
PROVIDERS: PCP Family Medicine; Visit Provider Internal Medicine
DX: Z20.822 Contact with and (suspected) exposure to COVID-19 (principal)
CPT/HCPCS: U0003

== ENCOUNTER 2020-12-22 10:03 | Outpatient (REF) | payer MEDICAID, SELFPAY ==
[2020-12-23 13:51] LABS: COVID-19 RT-PCR UVMMC Result Negative (Negative)
== END 2020-12-22 10:04 | disposition home or self-care (01) ==
LOC: NCHCN 10:03
PROVIDERS: PCP Family Medicine; Visit Provider Internal Medicine
DX: Z20.822 Contact with and (suspected) exposure to COVID-19 (principal)
CPT/HCPCS: U0003

== ENCOUNTER 2021-02-21 12:02 | Outpatient (REF) | payer MEDICAID, SELFPAY ==
[2021-02-22 15:15] LABS: COVID-19 RT-PCR UVMMC Result Negative (Negative)
== END 2021-02-21 12:03 | disposition home or self-care (01) ==
LOC: NCHCN 12:02
PROVIDERS: PCP Family Medicine; Visit Provider Internal Medicine
DX: Z20.822 Contact with and (suspected) exposure to COVID-19 (principal)
CPT/HCPCS: U0003

== ENCOUNTER 2021-05-25 10:56 | Outpatient (REF) | payer MEDICAID, SELFPAY ==
[2021-05-27 16:01] LABS: COVID-19 RT-PCR UVMMC Result Negative (Negative)
== END 2021-05-25 10:57 | disposition home or self-care (01) ==
LOC: NCHCN 10:56
PROVIDERS: PCP Family Medicine; Visit Provider Internal Medicine
DX: Z20.822 Contact with and (suspected) exposure to COVID-19 (principal)
CPT/HCPCS: U0003

== ENCOUNTER 2021-06-07 10:11 | Outpatient (REF) | payer MEDICAID, SELFPAY ==
[2021-06-09 18:08] LABS: COVID-19 RT-PCR Result Not Detected ((See Note))
== END 2021-06-07 10:12 | disposition home or self-care (01) ==
LOC: NCHCN 10:11
PROVIDERS: PCP Family Medicine; Visit Provider Internal Medicine
DX: Z20.822 Contact with and (suspected) exposure to COVID-19 (principal)
CPT/HCPCS: U0003

== ENCOUNTER 2021-06-12 14:50 | Outpatient (REF) | payer MEDICAID, SELFPAY ==
[2021-06-14 14:24] LABS: COVID-19 RT-PCR UVMMC Result Negative (Negative)
== END 2021-06-12 14:51 | disposition home or self-care (01) ==
LOC: NCHCN 14:50
PROVIDERS: PCP Family Medicine; Visit Provider Internal Medicine
DX: Z20.822 Contact with and (suspected) exposure to COVID-19 (principal)
CPT/HCPCS: U0003

== ENCOUNTER 2021-06-20 11:12 | Outpatient (REF) | payer MEDICAID, SELFPAY ==
[2021-06-22 11:56] LABS: COVID-19 RT-PCR UVMMC Result Negative (Negative)
== END 2021-06-20 11:13 | disposition home or self-care (01) ==
LOC: NCHCN 11:12
PROVIDERS: PCP Family Medicine; Visit Provider Internal Medicine
DX: Z20.822 Contact with and (suspected) exposure to COVID-19 (principal)
CPT/HCPCS: U0003

== ENCOUNTER 2021-06-27 11:55 | Outpatient (REF) | payer MEDICAID, SELFPAY ==
[2021-06-29 17:17] LABS: COVID-19 RT-PCR UVMMC Result Negative (Negative)
== END 2021-06-27 11:56 | disposition home or self-care (01) ==
LOC: NCHCN 11:55
PROVIDERS: PCP Family Medicine; Visit Provider Internal Medicine
DX: Z20.822 Contact with and (suspected) exposure to COVID-19 (principal)
CPT/HCPCS: U0003

== ENCOUNTER 2024-05-26 07:40 | Emergency (ER) | payer MEDICAID, SELFPAY ==
[2024-05-26] VITALS (19 sets, daily range): BP systolic 97–136; BP diastolic 56–77; PULSE 48–70; RESP 8–21; TEMP 36.5; O2SAT 98
--- NOTE | 2024-05-26 07:54 | W.ED.GENAD ---
Discharge Plan Disposition Patient Disposition: Home Condition: Good Discharge Details Clinical Impression: Diarrhea Primary Care Provider: Diane Mitchell ED Provider: Marin Coughlin Home Meds and New Rx's Prescriptions: New ciprofloxacin HCl 500 mg tablet 500 mg PO BID 7 Days Qty: 14 0RF Discharge Instructions Instructions: Ciprofloxacin (Systemic), Diarrhea, Adult ED Additional Instructions: At this time you have diarrhea which I suspect is from an infectious etiology. We are starting you on ciprofloxacin to help treat the potential infectious etiologies that could be causing this. It is a floroquinolone based antibiotic. As an uncommon side effect it can cause irritation to your tendons and potential damage and in the worst case scenario rupture. This is usually found in high intensity sport athletes. Please avoid any aggressive high intensity activity/sports for the time being. If you do not find any tenderness in your tendons please stop taking the antibiotic and contact your primary care provider. Please take a probiotic. Please stick with purified unfiltered water for the next month. If you notice any worsening of your symptoms, or any new symptoms such as vomiting, diarrhea, fever, chills, shortness of breath, chest pain, numbness, weakness, or fainting , please return immediately to the emergency department for reevaluation. Please follow up with your primary care provider as soon as possible for reassessment and reevaluation. As always, it was a pleasure participating in your medical care today. Referrals: Deepti Pineda [ [facility] STAFF PHYSICIAN] - [facility] General Date/Time Provider Initiated Documentation: 05/26/24 07:41. [facility] Narrative: This is a pleasant 63-year-old female with a past medical history of hypothyroidism who presents today for evaluation of diarrhea. Patient states that for the last 6 days she has had profuse watery diarrhea, with about 5-7 episodes per day. It is yellow in color, putrid and odor. She denies any blood. She admits to cramping. She denies any nausea or vomiting. She states that she will have multiple episodes throughout the night and soil herself regularly. She drinks water that has been bottled from the [facility] [employer] [place]. This water has been bottled for few weeks. She currently is not living in her home secondary to significant mold issues. She has been staying at someone's else's house. She denies any recent camping otherwise though. She denies any foreign travel. She has not been on any antibiotics recently. She denies any other complaints. No other modifying factors. Related Data Home Medications ?Medication ?Instructions ?Recorded ?Confirmed ciprofloxacin HCl 500 mg tablet 500 mg PO BID 7 days #14 tabs 05/26/24 Previous Rx's ?Medication ?Instructions ?Recorded ciprofloxacin HCl 500 mg tablet 500 mg PO BID 7 days #14 tabs 05/26/24 Allergies Allergy/AdvReac Type Severity Reaction Status Date / Time Histamine H2 Inhibitors Allergy Unverified 08/02/18 15:36 Latex, Natural Rubber Allergy Swelling/Ed Unverified 01/31/14 14:08 shantell Penicillins Allergy Unverified 08/02/18 15:36 General Stated Complaint: Nausea/Vomit/Diar DILAN: 3 Review of Systems All systems reviewed & are unremarkable except as noted in HPI and below Exam Narrative Exam Narrative: 1.Const: Well-nourished, Well-developed, appearing stated age 2.Eyes: PERRL, no conjunctival injection, and symmetrical lids. 3.ENT: Atraumatic external nose and ears. Dry MM. Neck: Symmetric, trachea midline, No thyromegaly. 4.CVS: +S1/S2, No murmurs or gallops. Peripheral pulses 2+ and equal in all extremities. Brisk capillary refill in all extremities. 5.RESP: Unlabored respiratory effort. Clear to auscultation bilaterally. No wheezes rales or rhonchi 6.GI: Soft, Nontender/Nondistended, No hepatosplenomegaly. No guarding or rebound. 7.MSK: Normocephalic/Atraumatic, Extremities w/o deformity or ttp No cyanosis or clubbing, Normal movement of all extremities 8.Skin: Warm, Dry. No rashes or lesions. 9.Neuro: well reactivator operator II-XII grossly intact. Sensation grossly intact, no focal neurologic deficits. 10.Psych: (AAO) x3. Appropriate mood and affect Course Vital Signs Vital signs: Vital Signs Temperature 36.5 C 05/26/24 07:44 Pulse 68 05/26/24 07:44 Respiratory Rate 18 05/26/24 07:44 Blood Pressure 116/75 05/26/24 07:44 Pulse Oximetry 98 05/26/24 07:44 Temperature 36.5 C 05/26/24 07:44 Pulse 68 05/26/24 07:44 Respiratory Rate 18 05/26/24 07:44 Blood Pressure 116/75 05/26/24 07:44 Pulse Oximetry 98 05/26/24 07:44 Medical Decision Making This is a pleasant 63-year-old female with a past medical history of hypothyroidism who presents today for evaluation of diarrhea. Patient states that for the last 6 days she has had profuse watery diarrhea, with about 5-7 episodes per day. It is yellow in color, putrid and odor. She denies any blood. She admits to cramping. She denies any nausea or vomiting. She states that she will have multiple episodes throughout the night and soil herself regularly. She drinks water that has been bott[facility]. This water has been bottled for few weeks. She currently is not living in her home secondary to significant mold issues. She has been staying at someone's else's house. She denies any recent camping otherwise though. She denies any foreign travel. She has not been on any antibiotics recently. She denies any other complaints. No other modifying factors. Exam demonstrates well-appearing female, dry mucous membranes, no abdominal tenderness on exam. No signs of an acute surgical abdomen. Differential includes infectious diarrhea, from Giardia, less likely Campylobacter, least likely E. coli 0157. Patient has no blood in her stools, no bruising is noted on the body. She has had no antibiotics, C. difficile less likely. Will get stool studies, rehydrate, check her thyroid function secondary to her lack of medication ingestion from the diarrhea, monitor closely and reassess. 10:01 AM Patient's laboratory workup is returned, no significant white count. Electrolytes are durable. Magnesium slightly low though at 1.5, TSH minimally high at 4.8 but free T4 is normal suggesting stable thyroid function. Lipase normal. Transaminases normal. C. difficile is negative on testing. We will send out for Campylobacter, Salmonella, Shigella, and ova and parasites. Will also send for Cryptosporidium and sugar toxin. Patient remains hemodynamically stable here. I do feel that treatment is indicated and appropriate at this time. We will give 2 g of magnesium to supplement her mild hypomagnesemia. She has been rehydrated with a liter of LR. We will start her on ciprofloxacin 500 twice daily for treatment of the suspected infectious diarrhea. Recommend probiotic at home and avoidance of greasy foods, and geriatric her water intake to only purified water. Patient otherwise appears stable. Repeat abdominal exam shows no signs of an acute surgical abdomen. We did discuss CT imaging, and through shared decision-making process, we will hold off on any CT imaging as there is currently no indication based on exam and symptomatology. Patient agrees and would also like to hold off on CT to avoid any significant radiation exposure. Discussed red flags which to return. I have extensively reviewed the treatment plan and discharge instructions with the patient. I have addressed all patient concerns at this time. The patient was made aware of what symptoms to monitor for that would warrant a return to the emergency department. Discussed the plan with the patient, they demonstrate verbal understanding and agreement with our assessment and plan at this time. The documentation in this chart was dictated using iWarda dictation software. Please excuse any dictation errors. Quality:SDOH Health Related Social Needs: Health related social needs inadequate housing, material hardship PFSH All Active Problems (Updated 05/26/24 @ 10:04 by Marin Coughlin DO) Diarrhea (Acute) Social History Smoking/Tobacco Use Status: Never Smoking risk assessment performed?: Yes Alcohol Intake: never Drug use: Never Do you feel safe in your relationship?: Yes
[2024-05-26] MEDS: Lactated Ringers 1,000 ML 1000 ML IV (08:00)
[2024-05-26 08:19] LABS: Abs Immature Grans 0.01 10^3/uL (0.0-0.06); Absolute Basophil Count 0.03 10^3/uL (0.0-0.2); Absolute Eosinophil Count 0.15 10^3/uL (0.0-0.7); Absolute Lymphocyte Count 1.09 10^3/uL (1.2-3.4); Absolute Monocyte Count 0.56 10^3/uL (0.1-0.8); Absolute Neutrophil Count 1.78 10^3/uL (1.2-6.7); Basophils % 0.8 %; Eosinophils % 4.1 %; HCT 41.7 % (36.0-46.0); HGB 14.2 g/dL (11.2-15.7); Immature Grans % 0.3 %; Lymphocytes % 30.1 %; MCH 31.1 pg (27.0-33.0); MCHC 34.1 % (32.0-36.0); MCV 91 fL (80-95); MPV 9.9 fL (8.0-11.0); Monocytes % 15.5 %; Neutrophils % 49.2 %; Platelet Count 205 10^3/uL (130-400); RBC 4.56 10^6/uL (3.93-5.22); RDW 12.7 % (11.7-14.6); RDW-SD 42.5 fL; WBC 3.62 10^3/uL (4.4-10.8)
[2024-05-26 08:43] LABS: ALT 24 U/L (14-59); AST 17 U/L (15-37); Albumin 3.7 g/dL (3.4-5.0); Alkaline Phosphatase 86 U/L (46-116); Anion Gap 10.9 mmol/L (3-11); BUN 13 mg/dL (7-18); Bilirubin, Total 0.59 mg/dL (0.2-1.0); CO2 24.1 mmol/L (21.0-32.0); CREATININE 0.9 mg/dL (0.55-1.02); Calcium 8.7 mg/dL (8.5-10.1); Chloride 108 mmol/L (98-107); Estimated GFR 72.73 (mL/min/1.73m2); Glucose 92 mg/dL (74-106); Lipase 32 U/L (16-77); Magnesium 1.5 mg/dL (1.8-2.4); Potassium 3.7 mmol/L (3.5-5.1); Sodium 143 mmol/L (136-145); TSH (W/Ref FT4) 4.84 uIU/mL (0.36-3.74); Total Protein 6.8 g/dL (6.4-8.2)
[2024-05-26 09:00] LABS: FREE T4 0.85 ng/dL (0.76-1.46)
[2024-05-26] MEDS: MAGNESIUM SULFATE 2 GM/50 ML BAG IVINF (09:02)
[2024-05-26 09:04] LABS: C Diff PCR Negative (Negative)
--- NOTE | 2024-05-26 10:02 | NUR.NOTE ---
Nursing Note:this RN received report and transfer of care from Irene Mendez RN at this time
[2024-05-26] MEDS: CIPROFLOXACIN 400 MG/200 ML BAG 200 MG IVPB (10:13)
[2024-05-26 22:00] LABS: Campylobacter PCR Negative (Negative); Salmonella PCR Negative (Negative); Shiga Toxin PCR Negative (Negative); Shigella/Enteroinvasive Ecoli Negative (Negative)
== END 2024-05-26 11:44 | disposition home or self-care (01) ==
LOC: ER 10:16
PROVIDERS: Emergency Provider Student in an Organized Health Care Education/Training Program; PCP Naturopath
DX: R19.7 Diarrhea, unspecified (principal)
CPT/HCPCS: 80053; 83690; 87329; 87493; 87505; 96365; 96367; 99284; 83735; 84439; 84443; 85025; 87177; 99283; J0744; J3475

== ENCOUNTER 2024-09-02 15:39 | Outpatient (CLI) | payer MEDICAID, SELFPAY ==
[2024-09-04 12:16] LABS: Lyme Ab w Rflx to Lyme Confirm Negative (Negative)
[2024-09-04 13:26] LABS: Anaplasma phagocytophilum Negative (Negative); Babesia species Negative (Negative)
== END 2024-09-02 15:40 | disposition home or self-care (01) ==
LOC: LBO 15:42
PROVIDERS: PCP Naturopath; Referring Provider Family Medicine; Visit Provider Family Medicine
DX: S00-T88 Injury, poisoning and certain other consequences of external causes (principal)
CPT/HCPCS: 36415; 87468; 87798; 86618

== ENCOUNTER 2024-11-04 17:23 | Emergency (ER) | payer MEDICAID, SELFPAY ==
[2024-11-04 17:26] VITALS: BP 127/75; PULSE 76; RESP 16; TEMP 36.6; O2SAT 98
--- NOTE | 2024-11-04 18:00 | DI.RAD_ITS ---
Exam(s) XR KNEE RT 3V AP,LAT,SHANA EXAM: XR KNEE RT 3V AP,LAT,SHANA CLINICAL HISTORY: knee pain post twisting injury. TECHNIQUE: 2D digital imaging was performed of the right knee. Three views obtained. AP, lateral an d PA tunnel views were obtained. COMPARISON: No exams were available for comparison FINDINGS: BONES: No acute fracture is present. No bony destructive lesion is seen. There is a small enthesophyt e at the superior patella. JOINTS: The knee is normally aligned. No joint effusion is seen. SOFT TISSUE: Normal. IMPRESSION: No acute fracture or dislocation. DATA REPOSITORY: RADIATION DOSE DELIVERED:
[2024-11-04 18:29] VITALS: BP 130/83; PULSE 63; RESP 16; O2SAT 100
--- NOTE | 2024-11-04 22:49 | ED.GENADUL_ITS ---
Discharge Plan Disposition Patient Disposition: Home Condition: Stable Discharge Details Clinical Impression: Internal derangement of knee Primary Care Provider: Diane Mitchell ED Provider: Di Huffman Home Meds and New Rx's Prescriptions: Continued glutathione 1 pwd PO DAILY acetylcysteine [NAC] 1 tab PO DAILY vitamin B complex 1 tab PO DAILY cod liver oil [vitamins A and D] 1 tab PO DAILY phytonadione (vitamin K1) 1 tab PO DAILY zinc acetate 1 cap PO DAILY melatonin 1 tab PO DAILY tryptophan 1 tab PO DAILY [id number]-min 1 dose PO DAILY olive leaf extract 1 mg PO DAILY Discharge Instructions Instructions: Meniscus Tear ED Additional Instructions: May apply topical Motrin gel as needed for pain this is [id number] Wear the knee brace when you are up and about walking use Debrox eardrops to help with cerumen in your left ear and let the warm water run in your ear after Please follow-up with physical therapy and listing referral and return earlier should you have new or worsening complaints Please follow-up with primary care physician should you have persistent pain and return earlier should you have new or worsening complaints Stand Alone Forms: Physical Therapy Referral HPI General Date/Time Provider Initiated Documentation: 11/04/24 17:46 . HPI Narrative: This 64-year-old female presents with report of right knee injury in August when she was running away from a dog. She also states she has had some d iscomfort in her left ear with clicking. She states this was in July and is no longer present. She is otherwise healthy and denies any additional complaints at this time. She states that predominantly her pain is worsened with extension in her right knee. She denies any known significant trauma. Related Data Home Medications ?Medication ?Instructions ?Recorded ?Confirmed [id number]-min 1 dose PO DAILY 11/04/24 11/04/24 acetylcysteine 1 tab PO DAILY 11/04/24 11/04/24 cod liver oil 1 tab PO DAILY 11/04/24 11/04/24 glutathione 1 pwd PO DAILY 11/04/24 11/04/24 melatonin 1 tab PO DAILY 11/04/24 11/04/24 olive leaf extract 1 mg PO DAILY 11/04/24 11/04/24 phytonadione (vitamin K1) 1 tab PO DAILY 11/04/24 11/04/24 tryptophan 1 tab PO DAILY 11/04/24 11/04/24 vitamin B complex 1 tab PO DAILY 11/04/24 11/04/24 zinc acetate 1 cap PO DAILY 11/04/24 11/04/24 Allergies Allergy/AdvReac Type Severity Reaction Status Date / Time Histamine H2 Inhibitors Allergy Unknown Unverified 11/04/24 17:37 Latex, Natural Rubber Allergy Swelling/Ed Unverified 11/04/24 17:37 shantell Penicillins Allergy Unknown Unverified 11/04/24 17:37 General Stated Complaint: Orthopedic DILAN: 4 Exam Narrative Exam Narrative: 64-year-old female presenting in no acute distress, right knee was examined without obvious effusion, neurovascularly intact no tenderness to right hip or calf, no tenderness to right ankle. Patient with cerumen in left ear able to visualize TM, no acute abnormality, no tenderness to mastoid bone Course Vital Signs Vital signs: Vital Signs Temperature 36.6 C 11/04/24 17:26 Pulse 76 11/04/24 17:26 Respiratory Rate 16 11/04/24 17:26 Blood Pressure 127/75 11/04/24 17:26 Pulse Oximetry 98 11/04/24 17:26 Temperature 36.6 C 11/04/24 17:26 Temperature Source Oral 11/04/24 17:26 Pulse 63 11/04/24 18:29 Respiratory Rate 16 11/04/24 18:29 Blood Pressure 130/83 11/04/24 18:29 Blood Pressure Position Sitting 11/04/24 17:26 Pulse Oximetry 100 11/04/24 18:29 Oxygen Delivery Method Room Air 11/04/24 17:26 Oxygen Flow Rate 0 11/04/24 17:26 Pain Level 3 11/04/24 18:29 Medical Decision Making 62-year-old female in no acute distress, right knee was imaged with x-ray which did not show evidence of acute abnormality per radiology interpretation my review. Will place patient in a brace and refer to physical therapy. Left ear with cerumen, patient is encouraged to use Debrox and follow-up with primary c are physician in the outpatient setting. Return precautions reviewed and patient expressed understanding, discharged home in stable condition with stable vitals Quality:SDOH Health Related Social Needs: Health related social needs housing instability, house d, with risk of homelessness (Z59.811), inadequate housing (Z59.1) PFSH All Active Problems (Updated 11/04/24 @ 18:24 by SG Curry) Internal derangement of knee (Acute) Social History Smoking/Tobacco Use Status: Never Smoking risk assessment performed?: Yes Alcohol Intake: never Drug use: Never Substance use type: does not use Do you feel safe in your relationship?: Yes
== END 2024-11-04 18:29 | disposition home or self-care (01) ==
PROVIDERS: Emergency Provider Physician Assistant; PCP Naturopath
DX: M23.91 Unspecified internal derangement of right knee (principal); Y93.02 Activity, running; X50.0XXA Overexertion from strenuous movement or load, initial encounter; H61.22 Impacted cerumen, left ear; Z59.811 Housing instability, housed, with risk of homelessness; Z59.10 Inadequate housing, unspecified
CPT/HCPCS: 29505; 73562; 99283

== ENCOUNTER 2025-01-19 16:19 | Outpatient (CLI) | payer MEDICAID, SELFPAY ==
[2025-01-22 11:03] LABS: T3 (Triiodothyronine) Reverse 12 ng/dL (10-24)
== END 2025-01-19 16:20 | disposition home or self-care (01) ==
LOC: LBO 16:21
PROVIDERS: PCP Naturopath; Visit Provider Family Medicine
DX: E03.9 Hypothyroidism, unspecified (principal)
CPT/HCPCS: 36415; 84482